=== PATIENT | male | born 2000 | race Caucasian/White ===

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

== ENCOUNTER 2018-03-26 03:32 | Emergency (ER) | END 2018-03-26 05:31 | disposition home or self-care (01) ==

== ENCOUNTER 2018-08-02 14:56 | Emergency (ER) | END 2018-08-02 19:40 | disposition left against medical advice (07) ==